=== PATIENT | female | born 1950 | race Caucasian/White ===

== ENCOUNTER 2016-12-07 11:04 | Emergency (ER) | payer BC ==
[2016-12-07 11:20] VITALS: BP 126/84
--- NOTE | 2016-12-07 12:31 | ED Physician Documentation ---
PD HPI SKIN - Stated complaint Stated Complaint: SWOLLEN HAND/ARM - Chief complaint Chief Complaint: Wound - History obtained from History obtained from: Patient - History of Present Illness Timing - onset: Other (Something, potentially a bee to the dorsal second left finger 2 days ago with increasing swelling and redness up the arm but no shortness of breath or throat issues.) Review of Systems Constitutional: reports: Reviewed and negative Throat: reports: Reviewed and negative Cardiac: reports: Reviewed and negative Respiratory: reports: Reviewed and negative PD PAST MEDICAL HISTORY - Past Medical History Past Medical History: No - Past Surgical History Past Surgical History: No - Present Medications Home Medications: Ambulatory Orders Medication Instructions Recorded Confirmed Cephalexin [Keflex] 500 mg PO QID 7 Days #28 capsule 12/07/16 predniSONE [Deltasone] 60 mg PO DAILY 5 Days tablet 12/07/16 - Allergies Allergies/Adverse Reactions: Allergies Allergy/AdvReac Type Severity Reaction Status Date / Time amoxicillin Allergy Rash Verified 12/07/16 11:20 - Social History Does the pt smoke?: No Smoking Status: Never smoker Does the pt drink ETOH?: Yes ETOH Use: Wine Does the pt have substance abuse?: No PD ED PE NORMAL - Vitals Vital signs reviewed: Yes - General General: Alert and oriented X 3, No acute distress - HEENT HEENT: Pharynx benign - Respiratory Respiratory: No respiratory distress, Clear bilaterally - Extremities Extremities: Other (Most of the dorsum of the left hand is swollen with angioedema and tight, and there is redness and swelling going up to the distal bicep on the left, on the dorsum of the second finger there are several bullae, the largest measuring about 5 mm around which was aspirated during exam and dressed.) - Neuro Neuro: Alert and oriented X 3, Normal speech Results - Vitals Vitals: Vital Signs - 24 hr 12/07/16 11:17 Temperature 37.3 C Heart Rate 75 Respiratory 18 Rate Blood Pressure 126/84 H O2 Saturation 99 Oxygen O2 Source Room air PD MEDICAL DECISION MAKING - ED course ED course: She has what looks like a severe localized reaction, probably to a bee sting, potentially some superinfection, no evidence of anaphylaxis. Departure - Departure Disposition: 01 Home, Self Care Clinical Impression: Local reaction to bee sting Qualifiers: Encounter type: initial encounter Injury intent: accidental or unintentional Qualified Code(s): T63.441A - Toxic effect of venom of bees, accidental ( unintentional), initial encounter Condition: Good Record reviewed to determine appropriate education?: Yes Instructions: ED Bite Sting Insect Local Allergic React Prescriptions: Cephalexin [Keflex] 500 mg PO QID 7 Days #28 capsule predniSONE [Deltasone] 60 mg PO DAILY 5 Days tablet Comments: Call your doctor to arrange a follow-up appointment, make the next available appointment. In the interim, return anytime if worse or if new symptoms develop. Your blood pressure was elevated today on check into the emergency department. This does not mean that you have hypertension, it is a common phenomenon to come to the emergency department and have elevated blood pressure. I recommend that she see your primary care physician within the week to have it rechecked when you are feeling better.
== END 2016-12-07 12:35 | disposition home or self-care (01) ==
LOC: ED 11:04
DX: T63.441A Toxic effect of venom of bees, accidental (unintentional), initial encounter (principal); R22.32 Localized swelling, mass and lump, left upper limb; R03.0 Elevated blood-pressure reading, without diagnosis of hypertension
CPT/HCPCS: 99283